=== PATIENT | male | born 1970 | race Caucasian/White ===

== ENCOUNTER 2024-06-11 14:19 | Emergency (ER) | payer OTHER ==
--- NOTE | 2024-06-11 14:54 | ED ---
Abdominal Pain HPI - General Chief Complaint: Abdominal Pain Stated Complaint: Fever Time Seen by Provider: 06/11/24 14:51 Source: patient, family, RN notes reviewed Mode of arrival: ambulatory Limitations: no limitations - History of Present Illness Initial Comments: 53-year-old male with history of gallstones sent by PCP for right upper quadrant abdominal pain. Patient states 1 month ago he was diagnosed with gallstones and sludge at [facility]. He has been in the process of scheduling an outpatient cholecystectomy. Reports 3 days ago he began having fevers with no other symptoms. Reports fever of 101 at home that reduces with ibuprofen. Reports some chronic mild right upper quadrant abdominal pain however denies any new abdominal pain. Denies chest pain, shortness of breath, urinary symptoms, nausea, vomiting. Patient is able to tolerate orals normally. States he was seen by his PCP today who told him he had red blood cells in his urine and sent him to the ER for further evaluation. Denies any other health conditions. H istory of appendectomy when he was 14. - Related Data Home Medications Medication Instructions Recorded Confirmed Azelastine HCl [Astelin Nasal 2 spray EA NOSTRIL DAILY 06/11/24 06/11/24 [place]] Ibuprofen [Motrin] 800 mg PO Q8H PRN 06/11/24 06/11/24 Ondansetron Odt [Zofran Odt] 8 mg PO Q8HR PRN 06/11/24 06/11/24 traMADol HCL 50 - 100 mg PO Q8H PRN 06/11/24 06/11/24 Allergies Allergy/AdvReac Type Severity Reaction Status Date / Time No Known Allergies Allergy Verified 06/11/24 18:02 Review of Systems ROS Statement: Those systems with pertinent positive or pertinent negative responses have been documented in the HPI. ROS Other: All systems not noted in ROS Statement are negative. Past Medical History Past Medical History: No Reported History Past Surgical History: Adenoidectomy, Appendectomy, Tonsillectomy Smoking Status: Former smoker Past Alcohol Use History: None Reported Past Drug Use History: None Reported General Exam Limitations: no limitations General appearance: alert, in no apparent distress Head exam: Present: atraumatic, normocephalic, normal inspection Eye exam: Present: normal appearance, PERRL, EOMI. Absent: scleral icterus, conjunctival injection, periorbital swelling Respiratory exam: Present: normal lung sounds bilaterally. Absent: respiratory distress, wheezes, rales, rhonchi, stridor Cardiovascular Exam: Present: regular rate, normal rhythm, normal heart sounds. Absent: systolic murmur, diastolic murmur, rubs, gallop, clicks GI/Abdominal exam: Present: soft, normal bowel sounds, other (Negative Molina sign). Absent: distended, tenderness, guarding, rebound, rigid Back exam: Absent: CVA tenderness (R), CVA tenderness (L) Neurological exam: Present: alert, oriented X3 Psychiatric exam: Present: normal affect, normal mood Skin exam: Present: warm, dry, intact, normal color. Absent: rash Course Vital Signs 06/11/24 06/11/24 14:20 16:45 Temperature 98.4 F 98.5 F Pulse Rate 89 75 Respiratory 20 18 Rate Blood Pressure 134/83 123/79 O2 Sat by Pulse 97 95 Oximetry Medical Decision Making - Medical Decision Making Was pt. sent in by a medical professional or institution (, PA, FILM LOADER, urgent care, hospital, or care home...) When possible be specific @ -No Did you speak to anyone other than the patient for history (EMS, parent, family, police, friend...)? What history was obtained from this source @ -No Did you review nursing and triage notes (agree or disagree)? Why? @ -I reviewed and agree with nursing and triage notes Were old charts reviewed (outside hosp., previous admission, EMS record, old EKG, old radiological studies, urgent care reports/EKG's, care home records)? Report findings @ -No old charts were reviewed Differential Diagnosis (chest pain, altered mental status, abdominal pain women, abdominal pain men, vaginal bleeding, weakness, fever, dyspnea, syncope, headache, dizziness, GI bleed, back pain, seizure, CVA, palpatations, mental health, musculoskeletal)? @ -Differential Abdominal Pain Men: Appendicitis, cholecystitis, diverticulosis, ischemic bowel, pancreatitis, hepatitis, UTI, gastroenteritis, AAA, incarcerated hernia, bowel obstruction, constipation, inflammatory bowel, hepatitis, peptic ulcer disease, splenic infarction, perforated viscus, testicular torsion, this is not meant to be an all-inclusive list EKG interpreted by me (3pts min.). @ -None X-rays interpreted by me (1pt min.). @ -None done CT interpreted by me (1pt min.). @ -CT abdomen pelvis reveals no acute process or obstructive uropathy, there is cholelithiasis, colonic diverticulosis without diverticulitis, few bilateral pulmonary nodules measuring up to 6.7 mm U/S interpreted by me (1pt. min.). @ -Ultrasound gallbladder reveals multiple gallstones without evidence for acute cholecystitis What testing was considered but not performed or refused? (CT, X-rays, U/S, labs)? Why? @ -None What meds were considered but not given or refused? Why? @ -None Did you discuss the management of the patient with other professionals (pro fessionals i.e. , PA, FILM LOADER, lab, RT, psych nurse, social economist, culinary art teacher, teacher, safety officer, egg caser)? Give summary @ -No Was smoking cessation discussed for >3mins.? @ -No Was critical care preformed (if so, how long)? @ -No Were there social determinants of health that impacted care today? How? (Homelessness, low income, unemployed, alcoholism, drug addiction, transportation, low edu. Level, literacy, decrease access to med. care, usp, rehab)? @ -No Was there de-escalation of care discussed even if they declined (Discuss DNR or withdrawal of care, Hospice)? DNR status @ -No What co-morbidities impacted this encounter? (DM, HTN, Smoking, COPD, CAD, Cancer, CVA, ARF, Chemo, Hep., AIDS, mental health diagnosis, sleep apnea, morbid obesity)? @ -None Was patient admitted / discharged? Hospital course, mention meds given and route, prescriptions, significant lab abnormalities, going to OR and other pertinent info. @ -53-year-old male with history of gallstones presenting for fever x 3 days. Reports chronic right upper quadrant tenderness however denies any acute abdominal pain. Patient is afebrile with no CVA tenderness. Negative Molina sign. Abdomen soft and nonsurgical. Provided with IV fluids and Toradol. Lab work unremarkable. White blood cell count 2, ALT 56, AST 58, alk phos 69, lipase 212, amylase 59. Urinalysis reveals 2+ ketones and 23 red blood cells. Ultrasound gallbladder reveals multiple gallstones without evidence for acute cholecystitis. Patient is negative for COVID-19, influenza, and RSV. Due to fevers at home and hematuria, CT abdomen pelvis will be obtained to rule out kidney stones. CT abdomen pelvis reveals no acute process or obstructive uropathy, there is cholelithiasis, colonic diverticulosis without diverticulitis, few bilateral pulmonary nodules measuring up to 6.7 mm. Discussed results with patient including incidental findings. Upon reevaluation, patient remains asymptomatic. Advised close follow-up with PCP for further evaluation of hematuria and for follow-up pulmonary scans in 3 to 6 months. Patient has follow-up with general surgery at the end of the month for gallstones. Appropriate return precautions and follow-up discussed. Case was discussed with my ED attending Dr. Sanchez. Undiagnosed new problem with uncertain prognosis? @ -No Drug Therapy requiring intensive monitoring for toxicity (Heparin, Nitro, Insulin, Cardizem)? @ -No Were any procedures done? @ -No Diagnosis/symptom? @ -Hematuria Acute, or Chronic, or Acute on Chronic? @ -Acute Uncomplicated (without systemic symptoms) or Complicated (systemic symptoms)? @ -Uncomplicated Side effects of treatment? @ -No Exacerbation, Progression, or Severe Exacerbation? @ -No Poses a threat to life or bodily function? How? (Chest pain, [place], [place], pneumonia, PE, COPD, DKA, ARF, appy, cholecystitis, CVA, Diverticulitis, Homicidal, Suicidal, threat to staff... and all critical care pts) @ -Not at this time - Lab Data Result diagrams: 06/11/24 15:21 06/11/24 15:21 Lab Results 06/11/24 06/11/24 06/11/24 Range/Units 15:21 15:21 15:21 WBC 2.61 L (4.50-10.00) 10*3/uL RBC 4.87 (4.40-5.60) 10*6/uL Hgb 15.1 (13.0-17.0) g/dL Hct 42.3 (39.6-50.0) % MCV 86.9 (80.0-97.0) fL MCH 31.0 (27.0-32.0) pg MCHC 35.7 (32.0-37.0) g/dL Plt Count 151 (140-440) 10*3/uL MPV 9.9 (9.5-12.2) fL Immature Gran % (Auto) 0.8 % Neutrophils % 71.6 % Lymphocytes % 13.4 % Monocytes % 13.4 % Eosinophils % 0.0 % Basophils % 0.8 % Immature Gran # 0.02 (0.00-0.04) 10*3/uL Neutrophils # 1.87 (1.80-7.70) 10*3/uL Lymphocytes # 0.35 L (0.90-5.00) 10*3/uL Monocytes # 0.35 (0.20-1.00) 10*3/uL Eosinophils # 0.00 L (0.04-0.35) 10*3/uL Basophils # 0.02 (0.00-0.10) 10*3/uL Sodium 135 L (137-145) mmol/L Potassium 4.4 (3.5-5.1) mmol/L Chloride 100 (98-107) mmol/L Carbon Dioxide 28 (22-30) mmol/L Anion Gap 7 mmol/L BUN 21 H (9-20) mg/dL Creatinine 0.86 (0.66-1.25) mg/dL Est GFR (CKD-EPI)AfAm >90 (>60 ml/min/1.73 sqM) Est GFR (CKD-EPI)NonAf >90 (>60 ml/min/1.73 sqM) Glucose 114 H (74-99) mg/dL Plasma Lactic Acid Jayant (0.7-2.0) mmol/L Calcium 9.6 (8.4-10.2) mg/dL Total Bilirubin 0.6 (0.2-1.3) mg/dL AST 58 (17-59) U/L ALT 56 H (4-49) U/L Alkaline Phosphatase 69 (38-126) U/L Total Protein 7.2 (6.3-8.2) g/dL Albumin 4.2 (3.5-5.0) g/dL Amylase 59 (30-110) U/L Lipase 212 (23-300) U/L Urine Color Yellow Urine Appearance Clear (Clear) Urine pH 5.5 (5.0-8.0) Ur Specific [place] 1.039 H (1.001-1.035) Urine Protein Trace H (Negative) Urine Glucose (UA) Negative (Negative) Urine Ketones 2+ H (Negative) Urine Blood Moderate H (Negative) Urine Nitrite Negative (Negative) Urine Bilirubin Negative (Negative) Urine Urobilinogen <2.0 (<2.0) mg/dL Ur Leukocyte Esterase Negative (Negative) Urine RBC 23 H (0-5) /hpf Urine WBC 3 (0-5) /hpf Calcium Oxalate Crystal Occasional H (None) /hpf Urine Mucus Few H (None) /hpf Influenza Type A (PCR) (Not Detectd) Influenza Type B (PCR) (Not Detectd) RSV (PCR) (Not Detectd) SARS-CoV-2 (PCR) (Not Detectd) 06/11/24 06/11/24 Range/Units 15:21 15:21 WBC (4.50-10.00) 10*3/uL RBC (4.40-5.60) 10*6/uL Hgb (13.0-17.0) g/dL Hct (39.6-50.0) % MCV (80.0-97.0) fL MCH (27.0-32.0) pg MCHC (32.0-37.0) g/dL Plt Count (140-440) 10*3/uL MPV (9.5-12.2) fL Immature Gran % (Auto) % Neutrophils % % Lymphocytes % % Monocytes % % Eosinophils % % Basophils % % Immature Gran # (0.00-0.04) 10*3/uL Neutrophils # (1.80-7.70) 10*3/uL Lymphocytes # (0.90-5.00) 10*3/uL Monocytes # (0.20-1.00) 10*3/uL Eosinophils # (0.04-0.35) 10*3/uL Basophils # (0.00-0.10) 10*3/uL Sodium (137-145) mmol/L Potassium (3.5-5.1) mmol/L Chloride (98-107) mmol/L Carbon Dioxide (22-30) mmol/L Anion Gap mmol/L BUN (9-20) mg/dL Creatinine (0.66-1.25) mg/dL Est GFR (CKD-EPI)AfAm (>60 ml/min/1.73 sqM) Est GFR (CKD-EPI)NonAf (>60 ml/min/1.73 sqM) Glucose (74-99) mg/dL Plasma Lactic Acid Jayant 0.8 (0.7-2.0) mmol/L Calcium (8.4-10.2) mg/dL Total Bilirubin (0.2-1.3) mg/dL AST (17-59) U/L ALT (4-49) U/L Alkaline Phosphatase (38-126) U/L Total Protein (6.3-8.2) g/dL Albumin (3.5-5.0) g/dL Amylase (30-110) U/L Lipase (23-300) U/L Urine Color Urine Appearance (Clear) Urine pH (5.0-8.0) Ur Specific [place] (1.001-1.035) Urine Protein (Negative) Urine Glucose (UA) (Negative) Urine Ketones (Negative) Urine Blood (Negative) Urine Nitrite (Negative) Urine Bilirubin (Negative) Urine Urobilinogen (<2.0) mg/dL Ur Leukocyte Esterase (Negative) Urine RBC (0-5) /hpf Urine WBC (0-5) /hpf Calcium Oxalate Crystal (None) /hpf Urine Mucus (None) /hpf Influenza Type A (PCR) Not Detected (Not Detectd) Influenza Type B (PCR) Not Detected (Not Detectd) RSV (PCR) Not Detected (Not Detectd) SARS-CoV-2 (PCR) Not Detected (Not Detectd) Disposition Clinical Impression: Hematuria Disposition: HOME SELF-CARE Condition: Stable Instructions (If sedation given, give patient instructions): Hematuria (ED) Additional Instructions: Please follow-up with your PCP regarding blood in your urine. You will also need follow-up scans in 3 to 6 months for pulmonary nodules measuring up to 6.7 mm. Please return to the Emergency Department if symptoms worsen or any other concerns. Is patient prescribed a controlled substance at d/c from ED?: No Referrals: Ayan Atkinson DO [Primary Care Provider] - 1-2 days Time of Disposition: 19:09
[2024-06-11] MEDS: SODIUM CHLORIDE 0.9% 1,000 ML IV STA (15:23)
[2024-06-11] MEDS: KETOROLAC 15 MG/ML 1 ML VIAL IVP STA (15:23)
[2024-06-11 15:39] LABS: Basophils # (A) 0.02 10*3/uL (0.00-0.10); Basophils % (A) 0.8 %; HCT 42.3 % (39.6-50.0); HGB 15.1 g/dL (13.0-17.0); Lymphocytes # (A) 0.35 10*3/uL (0.90-5.00); Lymphocytes % (A) 13.4 %; MCHC 35.7 g/dL (32.0-37.0); MCV 86.9 fL (80.0-97.0); Mean Platelet Volume 9.9 fL (9.5-12.2); Monocytes # (A) 0.35 10*3/uL (0.20-1.00); Monocytes % (A) 13.4 %; Neutrophils # (A) 1.87 10*3/uL (1.80-7.70); Neutrophils % (A) 71.6 %; Platelet Count 151 10*3/uL (140-440); RBC 4.87 10*6/uL (4.40-5.60); RDW 11.7 % (11.5-14.5); WBC 2.61 10*3/uL (4.50-10.00)
[2024-06-11 15:45] LABS: Appearance,Urine Clear (Clear); Bilirubin,Urine Negative (Negative); Blood,Urine Moderate (Negative); Calcium Oxalate Crystals,Urine Occasional /hpf; Color,Urine Yellow; Glucose,Urine (UA) Negative (Negative); Ketones,Urine 2+ (Negative); Leukocyte Esterase,Urine Negative (Negative); Mucus,Urine Few /hpf; Nitrite,Urine Negative (Negative); PH, Urine 5.5 (5.0-8.0); Protein,Urine Trace (Negative); RBC,Urine 23 /hpf (0-5); Specific Gravity,Urine 1.039 (1.001-1.035); Urobilinogen,Urine <2.0 mg/dL (<2.0); WBC,Urine 3 /hpf (0-5)
[2024-06-11 15:55] LABS: ALT 56 U/L (4-49); AST 58 U/L (17-59); African American GFR (CKD) >90 (>60 ml/min/1.73 sqM); Albumin 4.2 g/dL (3.5-5.0); Alkaline Phosphatase 69 U/L (38-126); Amylase 59 U/L (30-110); Anion Gap 7 mmol/L; Blood Urea Nitrogen 21 mg/dL (9-20); Calcium 9.6 mg/dL (8.4-10.2); Carbon Dioxide 28 mmol/L (22-30); Chloride 100 mmol/L (98-107); Glucose 114 mg/dL (74-99); Lipase 212 U/L (23-300); Non-African American GFR(CKD) >90 (>60 ml/min/1.73 sqM); Potassium 4.4 mmol/L (3.5-5.1); Sodium 135 mmol/L (137-145); Total Bilirubin 0.6 mg/dL (0.2-1.3); Total Protein 7.2 g/dL (6.3-8.2)
[2024-06-11 16:21] LABS: Influenza A Not Detected (Not Detectd); Influenza B Not Detected (Not Detectd); RSV Not Detected (Not Detectd)
--- NOTE | 2024-06-11 16:32 | US ---
EXAMINATION TYPE: US gallbladder DATE OF EXAM: 06/11/2024 COMPARISON: NONE CLINICAL INDICATION: Male, 53 years old with history of RUQ abd pain, hx gallstones; Pt states known gallstones, recent fever TECHNIQUE: Grayscale and color Doppler imaging of the right upper quadrant was performed. FINDINGS: EXAM MEASUREMENTS: Liver Length: 17.7 cm Gallbladder Wall: 0.3 cm CBD: 0.4 cm Right Kidney: 10.5 x 5.2 x 5.6 cm WAREHOUSE COORDINATOR NOTES: Pancreas: wnl Liver: Visualized portions appeared wnl Gallbladder: Multiple, mobile gallstones, wall thickness upper limits of normal Evidence for sonographic Molina's sign: No CBD: wnl Right Kidney: No evidence of hydro IMPRESSION: Multiple gallstones without sonographic evidence for acute cholecystitis. [facility], , 06/11/2024 4:29 PM
--- NOTE | 2024-06-11 18:58 | CT ---
EXAMINATION TYPE: CT abdomen pelvis wo con CT DLP: 918.1 mGycm, Automated exposure control for dose reduction was used. DATE OF EXAM: 06/11/2024 6:11 PM COMPARISON: Gallbladder ultrasound 06/11/2024 CLINICAL INDICATION:Male, 53 years old with history of hematuria, flank pain; fever, right sided abdo olu discomfort TECHNIQUE: Standard CT of the abdomen and pelvis without IV or oral contrast. Lack of IV or oral co ntrast limits evaluation of solid and hollow organ viscera. Coronal and sagittal reformats were perfo rmed. FINDINGS: LOWER CHEST: Right middle lobe 5.7 mm calcified granuloma. Right lower lobe 4.1 mm pulmonary nodule ( series 204, image 6). Right lower lobe pleural-based 5.8 mm pulmonary nodule (series 204, image 11). Right lower lobe pleural-based 5.7 mm pulmonary nodule (series 204, image 1). Left lower lobe 6.7 mm pulmonary nodule (series 204, image 16). ABDOMEN LIVER: Unremarkable noncontrast appearance GALLBLADDER AND BILE DUCTS: Cholelithiasis. No biliary duct dilatation. No surrounding inflammatory c hanges. PANCREAS: Unremarkable noncontrast appearance SPLEEN: Scattered calcified granulomas. Enlarged measuring 16.3 cm in CC dimension. ADRENAL GLANDS: Unremarkable noncontrast appearance. KIDNEYS AND URETERS: No evidence of hydronephrosis or renal calculus. No perinephric or perirenal fa t stranding. No hydroureter or ureteral calculus identified. PELVIS BLADDER: Incompletely distended but grossly unremarkable. REPRODUCTIVE: Coarse calcifications of the prostate gland are identified. ABDOMEN & PELVIS STOMACH AND BOWEL: Small hiatal hernia, duodenum is unremarkable. Distal colonic diverticulosis witho ut evidence for acute diverticulitis. No focal bowel wall thickening or surrounding inflammatory galvin ges. The appendix is not definitively identified. No evidence of bowel obstruction. PERITONEUM: No evidence of pneumoperitoneum or free fluid. VASCULATURE: No evidence of aortic aneurysm. MUSCULOSKELETAL: No acute osseous abnormalities. Degenerative changes of the left SI joint with anter ior bridging. LYMPH NODES: No gross evidence for lymphadenopathy. SOFT TISSUE/ABDOMINAL WALL: Small fat filled umbilical hernia. IMPRESSION: 1. No CT evidence for acute abdominal/pelvic process within the limitations of a noncontrast exam. N o evidence for obstructive uropathy. 2. Cholelithiasis. 3. Colonic diverticulosis without evidence for acute diverticulitis. 4. Small hiatal hernia. 5. Splenomegaly with calcified granulomas. 6. Few bilateral lower lobe pulmonary nodules with largest measuring up to 6.7 mm. According to Fleis chner criteria, follow-up CT chest in 3-6 months is recommended. [facility], , 06/11/2024 6:56 PM
[2024-06-11 19:20] VITALS: BP 145/83; PULSE 85; RESP 20; TEMP 98.6
== END 2024-06-11 19:20 | disposition home or self-care (01) ==
LOC: EC 14:19
DX: R31.9 Hematuria, unspecified (principal); Z87.891 Personal history of nicotine dependence
CPT/HCPCS: 36415; 80053; 82150; 83605; 83690; 85025; 81001; 87636; 76705; 74176; 99284; 96374; 96361 ×2; J1885